=== PATIENT | male | born 2000 | race Caucasian/White ===

== ENCOUNTER 2024-08-14 15:35 | Emergency (ER) | payer BC, SELFPAY ==
[2024-08-14 15:44] VITALS: BP 146/81; PULSE 85; RESP 16; TEMP 37.1; O2SAT 97; BMI 28.2
--- NOTE | 2024-08-14 16:59 | PD.EDRME ---
Rapid Medical Screening Exam RME Arrival date/time: 08/14/24 15:35 This is a 24-year-old male that comes in with complaints of lower back pain that radiates by down bilateral legs. Patient states he is having a hard time walking. patient denies loss of bowel or bladder function. Patient denies numbness and tingling. Patient states that this has happened before but it typically resolves on its own but the pain has not subsided and he is having a hard time in any position. I have greeted and performed a focused initial assessment of this patient. Initial appropriate labs ordered at this time. A comprehensive ED assessment and evaluation of the patient and analysis of all test and completion of medical decision making process will be conducted by additional ED provider. Chief Complaint: Back Pain/Injury Time Seen by Provider: 08/14/24 16:17 Vital signs: Vital Signs Temperature 98.8 F 08/14/24 15:44 Pulse Rate 85 08/14/24 15:44 Respiratory Rate 16 08/14/24 15:44 Blood Pressure 146/81 H 08/14/24 15:44 Pulse Oximetry (%) 97 08/14/24 15:44 Oxygen Delivery Method Room Air 08/14/24 15:44
[2024-08-14] MEDS: KETOROLAC INJ 60 MG/2 ML VIAL IM (17:07)
[2024-08-14] MEDS: ONDANSETRON ODT 4 MG TABRAP PO (17:07)
[2024-08-14] MEDS: CYCLObenzaPRINE 5 MG TABLET 10 MG PO (17:07)
[2024-08-14] MEDS: HYDROcodone/APAP 5/325 TABLET 1 TAB PO (17:07)
--- NOTE | 2024-08-14 17:41 | XR_ITS ---
Examination: CT lumbar spine without intravenous contrast, without contrast. 2-D sagittal reconstructions. 2-D coronal reconstructions. 3-D reconstructions. Exam date and time: August 14, 2024 1810 hrs. Indications: Onset lower back pain today CTDI: vol (mGy):23.9 DLP: (mGycm):249 Technique: Multiple 1.25 mm axial sections of the lumbar spine without intravenous contrast have been obtained. 2-D sagittal and coronal reconstructions have been obtained. 3-D reconstructions have been obtained. Low dose protocols were performed. One or more of the following dose reduction techniques were used; automated exposure control, adjustment of the mA and/or KV according to patient size, use of iterative reconstruction technique. Findings: Adequate alignment lumbar vertebral bodies on the lateral view No lumbar vertebral body compression fracture Moderate disc narrowing L5-S1 Lumbar pedicles, laminae, transverse and posterior spinous processes intact L5-S1 6 mm right paracentral disc protrusion axial image 115, indenting the ventral margin thecal sac and displacing the right S1 nerve root with mild right L5 ganglionic compression L4-L5 no disc protrusion L3-L4 no disc protrusion L2-L3 no disc protrusion L1-L2 no disc protrusion Axial image 51 demonstrates 3 mm of calcification posterior right kidney Impression: L5-S1 6 mm right paracentral disc protrusion indenting the ventral margin thecal sac displacing the right S1 nerve root, with mild right L5 ganglionic compression Incidental note 3 mm soft calcification posterior right kidney
[2024-08-14] MEDS: DEXAMETHASONE SOD PHOS INJ 10 MG/ML VIAL IM (19:08)
--- NOTE | 2024-08-14 19:14 | PD.EDBACK ---
ED Back Injury Pain RME/HPI General Chief Complaint: Back Pain/Injury Stated Complaint: LOWER BACK PAIN Time Seen by Provider: 08/14/24 16:17 Arrival date/time: 08/14/24 15:35 RME / HPI RME / HPI Narrative: 24-year-old male that comes in with complaints of lower back pain that radiates by down bilateral legs. This been ongoing for the last few days. Patient states he is having a hard time walking due to pain. Denies any saddle anesthesia. Patient denies loss of bowel or bladder function. Patient denies numbness and tingling. Patient states that this has happened before but it typically resolves on its own but the pain has not subsided and he is having a hard time in any position. = Related Data Previous Rx's ?Medication ?Instructions ?Recorded cyclobenzaprine 10 mg tablet 10 mg PO TID PRN muscle spasm #30 08/14/24 tabs dexamethasone 6 mg tablet 6 mg PO QDAY #7 tabs 08/14/24 ibuprofen 800 mg tablet 800 mg PO TID PRN pain #30 tabs 08/14/24 Allergies Allergy/AdvReac Type Severity Reaction Status Date / Time No Known Allergies Allergy Verified 08/14/24 15:37 Review of Systems Review of Systems Narrative Review of Systems: Review of system reviewed and within normal limits except mentioned in HPI ED Exam Narrative Physical exam: VITAL SIGNS: Reviewed. GENERAL APPEARANCE: Alert and interactive, follows commands, no acute distress, HEAD AND FACE: Non-traumatic. ENT: PERRL, pink conjunctivitis, eyelid no trauma, Mucous membrane moist. NECK: Supple, nontender, no nuchal rigidity. CHEST: No tenderness, no crepitus, no paradoxical movement, no retractions. LUNGS: Clear, well ventilated, symmetric, no rales, no wheezing, no ronchi, no stridor, good breath sounds bilaterally. HEART: Regular rate, regular rhythm, no murmur, no gallops. ABDOMEN: Soft, positive bowel sounds, nondistended, no guarding, nontender, no rebound, no masses, RECTAL: Deferred. GENITAL: Deferred. NEUROLOGICAL: Gross motor function intact sensory function intact, Appropriate for age. MUSCULOSKELETAL: low back tenderness, full range of motion. EXTREMITIES: Nontender, full range of motion. Tenderness to the anterior thigh right SKIN: Color pink, dry, no rash, no lacerations, no abrasions, no contusions. LYMPHATICS: Deferred. Course Quality Measures none Orders Category Date Time Status CT lumbar spine wo con Stat Exams 08/14/24 17:41 Completed CYCLObenzaPRINE [Flexeril] Med 08/14/24 16:58 Discontinued 10 mg PO X1 ONE Dexamethasone Inj [Decadron Inj] Med 08/14/24 19:04 Discontinued 10 mg IM X1 ONE HYDROcodone*/APAP 5/325 [[place] 5/325] Med 08/14/24 16:58 Discontinued 1 tab PO X1 ONE Ketorolac Inj [Toradol Inj] Med 08/14/24 16:58 Discontinued 60 mg IM X1 ONE Ondansetron Odt [Zofran Odt] Med 08/14/24 16:58 Discontinued 4 mg PO X1 ONE Vital Signs Vital signs: Vital Signs Temperature 98.8 F 08/14/24 15:44 Pulse Rate 85 08/14/24 15:44 Respiratory Rate 16 08/14/24 15:44 Blood Pressure 146/81 H 08/14/24 15:44 Pulse Oximetry (%) 97 08/14/24 15:44 Oxygen Delivery Method Room Air 08/14/24 15:44 Back Pain / Injury MDM Narrative MDM Narrative:: 24-year-old male that comes in with complaints of lower back pain that radiates by down bilateral legs. This been ongoing for the last few days. Patient states he is having a hard time walking due to pain. Denies any saddle anesthesia. Patient denies loss of bowel or bladder function. Patient denies numbness and tingling. Patient states that this has happened before but it typically resolves on its own but the pain has not subsided and he is having a hard time in any position. CT scan of the lumbar spine showed L5-S1 6 mm right paracentral disc protrusion indenting the ventral margin thecal sac displacing the right S1 nerve root, with mild right L5 ganglionic compression Incidental note 3 mm soft calcification posterior right kidney Results discussed with the patient and advised her to closely follow-up with orthopedic surgeon, return to emergency room if patient develop saddle anesthesia, urinary or bowel incontinence. Patient agrees with the plan Patient data External records reviewed:: None Clinical information provided by:: patient Social determinants that could affect healthcare access:: none Patient has the following chronic illnesses:: None How is presenting disease/condition affected by chronic disease/condition?: no chronic disease Evaluation data The following diagnostics were reviewed and interpreted by me:: radiology exam(s) Lab and/or radiology exams considered but not ordered:: None Interpretation Summary: CT scan of the lumbar spine showed L5-S1 6 mm right paracentral disc protrusion indenting the ventral margin thecal sac displacing the right S1 nerve root, with mild right L5 ganglionic compression Incidental note 3 mm soft calcification posterior right kidney Medications / Prescriptions Medications or Prescriptions considered but not ordered:: None Medication administrations:: Medication Administration History Discontinued Medications Hydrocodone Bitart/Acetaminophen (Hydrocodone/Apap 5/325 Tablet) 1 tab PO X1 ONE Stop: 08/14/24 16:59 Last Admin: 08/14/24 17:07 Dose: 1 tab Documented By: OA Cyclobenzaprine HCl (Cyclobenzaprine 5 Mg Tablet) 10 mg PO X1 ONE Stop: 08/14/24 16:59 Last Admin: 08/14/24 17:07 Dose: 10 mg Documented By: OA Dexamethasone Sodium Phosphate (Dexamethasone Sod Phos Inj 10 Mg/Ml Vial) 10 mg IM X1 ONE Stop: 08/14/24 19:05 Last Admin: 08/14/24 19:08 Dose: 10 mg Documented By: OA Ketorolac Tromethamine (Ketorolac Inj 60 Mg/2 Ml Vial) 60 mg IM X1 ONE Stop: 08/14/24 16:59 Last Admin: 08/14/24 17:07 Dose: 60 mg Documented By: OA Ondansetron HCl (Ondansetron Odt 4 Mg Tabrap) 4 mg PO X1 ONE; Protocol Stop: 08/14/24 16:59 Last Admin: 08/14/24 17:07 Dose: 4 mg Documented By: OA [place] Flexeril Decadron Toradol and Zofran Consultations Consultation(s) initiated? (list below): No Diagnosis Differential diagnosis back pain/injury: lumbar radiculopathy, sciatica and other Most likely diagnosis given after review of the tests above:: Low back pain, sciatica, lumbar disc disease Admission Indicated Admission indicated?: not indicated Explain why admission is indicated or not indicated:: Stable discharge Admission Request Was there a request for admission?: No Disposition Plan Disposition Plan: Discharge Discharge Attestation Discharge Attestation: The patient was given an opportunity to ask questions and understood the discharge instructions. Discharge instructions specifically effects, indications for sooner follow up or return to the emergency department, and the expected course of current diagnosis. Patient condition: Stable Discharge Plan Plan Patient Disposition: HOME (Self Care) Disposition Comment: STABLE Prescriptions/Referrals Prescriptions/Med Rec: New dexamethasone 6 mg tablet 6 mg PO QDAY Qty: 7 0RF cyclobenzaprine 10 mg tablet 10 mg PO TID PRN (Reason: muscle spasm) Qty: 30 0RF ibuprofen 800 mg tablet 800 mg PO TID PRN (Reason: pain) Qty: 30 0RF Referrals: No Primary/Family,Physician [Primary Care Provider] - In 1 week Problem List Clinical Impression: Sciatica, Lumbar disc disease Patient/Caregiver Discharge Instructions Education Materials: ED Sciatica Additional Instructions: Thank you for the opportunity for serving you today. You are stable for discharged . You are advised to: Follow-up with your PCP in 1 to 2 days and as per referral to spine surgeon Rest for couple of days, no stretching no bending until you are not having any back pain. Return to ED for worsening of symptoms Increase oral fluids Take medication as prescribed Print Language: Maldivian Stand Alone Forms: Andreina Award Info., Patient Portal Info Letter PA/INSPECTOR FIREARMS Supervising Physician PA/DONTE Supervising Physician: MD Florentino
== END 2024-08-14 19:47 | disposition home or self-care (01) ==
PROVIDERS: Emergency Provider Emergency Medicine
DX: M51.17 Intervertebral disc disorders with radiculopathy, lumbosacral region (principal)
CPT/HCPCS: 72131; 96372; 99284; J1100; J1885; Q0162; A9270